=== PATIENT | male | born 1965 | race Caucasian/White ===

== ENCOUNTER 2016-08-05 08:39 | Inpatient (IN) | payer OTHER ==
[~2016-08-05] VITALS: Ht 188 cm; Wt 165.2 kg
[2016-08-05] VITALS (8 sets, daily range): BP systolic 112–143; BP diastolic 66–79; PULSE 73–88; TEMP 36.9–37.2; O2SAT 90–96; Ht 188 cm; Wt 165.2 kg
[~2016-08-05 08:39] MED LIST: ALBU0.08 INH; ALBU1AER9 INH; AMLO-114 PO; ASPI325T45 PO; ATRINS NEB; CINN1CAP2 PO; FRS/40 PO; GLC/500 PO; GLIP-199 PO; IBUP-1451 PO; LEVO150T PO; LOSA100T65 PO; METO-478 PO; MOME100A INH; OXYC-57 PO; PANT1TAB48 PO; SPIR50TA3 PO; TIOTCAP INH; TIZA4CAP PO
[2016-08-05] MEDS ORDERED: METHYLPREDNISOLONE 125 MG VIAL IV STA (08:52)
[2016-08-05] MEDS ORDERED: SODIUM CHLORIDE 0.9% 1000ML 1,000 ML IV STA (08:52)
[2016-08-05] MEDS ORDERED: ALBUT/IPRATROP 3MG/0.5MG NEB 3 ML VIAL INH STA ×2 (08:52→09:40)
--- NOTE | 2016-08-05 09:15 | EMERGENCY ROOM VISIT NOTE ---
History Report prepared by Melvinibromario: Paulina Venegas Under the Supervision of: Dr. Jazmine Guardado M.D. First contact with patient: 08:48 Chief Complaint: RESPIRATORY PROBLEMS Stated Complaint: DIFFICULTY BREATHING Nursing Triage Summary: Pt c/o difficulty breathing since Tuesday, hx pneumonia. States O2 was down to 55%. Wears bipap at night. Oxygen in triage 80- 85% on RA History of Present Illness The patient is a 51 year old male who presents to the Emergency Room with complaints of persistent SOB starting 2 days ago. He has a history of COPD and wears 4 L BiPAP at night. He has inhalers and a nebulizer at home. He has not used his nebulizer. He had a fever 2 days ago which resolved with Tylenol. He denies any cough, vomiting, or diarrhea. He denies any swelling in his legs. He wears compression socks without which he would have swelling. He has a history of COPD and currently smokes 1 ppd. He has a history of diabetes. He does not check his sugars regularly. Two weeks ago he had his blood sugar checked by his PCP who said that it was high. He admits to eating candies regularly. He reports that he accidentally has been taking steroids every day for the past 3 weeks. He started taking antibiotics yesterday. He has had pneumonia in the past. He has a history of CHF and is on Lasix. He denies any history of coronary problems or stents. He has received his flu shot this season. Source of History: patient Onset: 2 days ago Position: other (respiratory) Quality: other (SOB) Timing: other (persistent) Associated Symptoms: + fevers, No cough, No diarrhea, No vomiting Note: Pt denies swelling in the legs. Review of Systems See HPI for pertinent positives & negatives. A total of 10 systems reviewed and were otherwise negative. Past Medical & Surgical Medical Problems: (1) CHF (congestive heart failure) (2) COPD (chronic obstructive pulmonary disease) (3) DM type 2 (diabetes mellitus, type 2) (4) Dyslipidemia (5) GERD (gastroesophageal reflux disease) (6) H/O cor pulmonale (7) H/O pulmonary hypertension (8) Hypertension (9) Hypothyroidism (10) Morbid obesity (11) NAFLD (nonalcoholic fatty liver disease) (12) Obstructive sleep apnea (13) Severe obstructive sleep apnea Surgical Problems: (1) S/P appendectomy Family History Diabetes mellitus FATHER DAUGHTER (type I) FH: emphysema FATHER FH: heart disease FATHER ([place], during cardiac cath age 77) Hypertension FATHER Stroke FATHER Social History Smoking Status: Current Every Day Smoker Drug Use: none Marital Status: Housing Status: lives with family Occupation Status: employed Current/Historical Medications Scheduled Amlodipine (Norvasc), 10 MG PO QAM Aspirin (Aspirin), 1 TAB PO QAM Atorvastatin (Lipitor), 40 MG PO QPM Cinnamon (Cinnamon), 1 CAP PO BID Empagliflozin (Jardiance), 10 MG PO DAILY Furosemide (Lasix), 1 DOSE PO BID Glipizide (Glipizide Er), 1 TAB PO BID Levothyroxine Sodium (Synthroid), 150 MCG PO QAM Losartan Potassium (Cozaar), 100 MG PO QAM Metformin Hcl (Glucophage), 1,000 MG PO BID Metoprolol Succinate (Toprol Xl), 25 MG PO QAM Mometasone Furoate-Formoterol (Dulera 100/5 Mcg), 2 PUFFS INH BID Pantoprazole (Protonix), 40 MG PO QAM Spironolactone (Aldactone), 50 MG PO QAM Tiotropium [place] (Spiriva Handihaler), 1 CAP INH QAM Scheduled PRN Albuterol Hfa (Ventolin Hfa), 2 PUFFS INH Q4H PRN for SOB/Wheezing Ipratropium [place] (Ipratropium [place]), 1 VIAL NEB QID PRN for Shortness of Breath Oxycodone/Acetaminophen 5MG/325MG (Percocet 5MG/325MG), 1 TABLET PO Q6H PRN for Pain Tizanidine Hcl (Zanaflex), 1 CAP PO TID PRN for Pain Allergies Coded Allergies: Simvastatin (Verified Allergy, Unknown, RASH, 08/05/16) Physical Exam Vital Signs Date Time Temp Pulse Resp B/P Pulse Ox O2 Delivery O2 Flow Rate FiO2 08/05/16 11:00 74 15 120/82 89 Nasal Cannula 4.0 08/05/16 10:00 76 17 122/69 90 Nasal Cannula 4.0 08/05/16 09:01 74 08/05/16 09:01 73 16 141/80 88 Nasal Cannula 3.0 08/05/16 08:44 37.1 78 22 154/75 81 Room Air Physical Exam Vital signs reviewed. Noted to be hypoxic at 88% on 2 L. General: Well-appearing, obese, in no significant distress. HEENT: No scleral icterus, PERRLA, neck supple. Atraumatic. Cardiovascular: Regular rate and rhythm, no extra sounds. Pulmonary: Diffuse wheezing bilateral lung jaeger. Normal work of breathing. On nasal cannula oxygen. Abdomen: Soft, nontender, nondistended, positive bowel sounds. Musculoskeletal: Atraumatic. Trace pedal edema with compression stockings in place. Neurologic: Patient awake alert and oriented x 3, full strength in all 4 extremities. Cranial nerves 2 through 12 grossly intact. Skin: Warm, dry, no rash Medical Decision & Procedures ER Provider Diagnostic Interpretation: X-ray results as stated below per interpretation by me and the radiologist: SINGLE VIEW CHEST CLINICAL HISTORY: Fever. FINDINGS: An AP, portable, upright chest radiograph is compared to chest x-ray and chest CT dated 01/09/2015. The examination is degraded by portable technique and apical lordotic positioning. The heart is enlarged. There is congestion of the central pulmonary vasculature. Moderate emphysema and chronic interstitial thickening is similar to previous. Patchy airspace opacities are seen in the left mid to lower lung. No large pleural effusion or pneumothorax is seen. The bony thorax is grossly intact. IMPRESSION: 1. Cardiomegaly with mild congestion of the central pulmonary vasculature. 2. There are patchy airspace opacities in the left mid to lower lung. Correlate clinically for evidence of pneumonia. Electronically signed by: Sunil Gunn M.D. 08/05/2016 9:24 AM Dictated Date/Time: 08/05/2016 9:23 AM Laboratory Results Test 08/05/16 09:00 08/05/16 09:20 Immature Granulocyte % (Auto) 0.2 % White Blood Count 8.71 K/uL (4.8-10.8) Red Blood Count 4.59 M/uL (4.7-6.1) Hemoglobin 14.3 g/dL (14.0-18.0) Hematocrit 42.5 % (42-52) Mean Corpuscular Volume 92.6 fL (80-100) Mean Corpuscular Hemoglobin 31.2 pg (25-34) Mean Corpuscular Hemoglobin Concent 33.6 g/dl (32-36) Platelet Count 222 K/uL (130-400) Mean Platelet Volume 10.3 fL (7.4-10.4) Neutrophils (%) (Auto) 66.1 % Lymphocytes (%) (Auto) 20.0 % Monocytes (%) (Auto) 12.9 % Eosinophils (%) (Auto) 0.6 % Basophils (%) (Auto) 0.2 % Neutrophils # (Auto) 5.76 K/uL (1.4-6.5) Lymphocytes # (Auto) 1.74 K/uL (1.2-3.4) Monocytes # (Auto) 1.12 K/uL (0.11-0.59) Eosinophils # (Auto) 0.05 K/uL (0-0.5) Basophils # (Auto) 0.02 K/uL (0-0.2) Immature Granulocyte # (Auto) 0.02 K/uL (0.00-0.02) Prothrombin Time 10.7 SECONDS (9.0-12.0) Prothromb Time International Ratio 1.0 (0.9-1.1) Activated Partial Thromboplast Time 29.7 SECONDS (21.0-31.0) Partial Thromboplastin Ratio 1.1 Total Bilirubin 0.6 mg/dl (0.2-1) Direct Bilirubin 0.1 mg/dl (0-0.2) Aspartate Amino Transf (AST/SGOT) 14 U/L (15-37) Alanine Aminotransferase (ALT/SGPT) 34 U/L (12-78) Alkaline Phosphatase 110 U/L (45-117) Total Creatine Kinase 53 U/L (39-308) Creatine Kinase MB 0.7 ng/ml (0.5-3.6) Creatine Kinase MB Ratio 1.3 (0-3.0) Pro-B-Type Natriuretic Peptide 84 pg/ml (0-900) Total Protein 7.6 gm/dl (6.4-8.2) Albumin 3.7 gm/dl (3.4-5.0) Bedside Troponin I 0.000 ng/ml (0-0.045) Laboratory results per my review. Medications Administered Medications (Trade) Dose Ordered Sig/Tram Route Start Time Stop Time Status Last Admin Dose Admin Albuterol/ Ipratropium 3 ml 3 ml NOW STAT INH 08/05/16 08:52 08/05/16 08:55 DC 4/27/17 09:12 3 ML Sodium Chloride (Nss 1000ml) 1,000 ml @ 125 mls/hr Q8H STAT IV 08/05/16 08:52 08/05/16 12:37 DC 08/05/16 09:12 125 MLS/HR Methylprednisolone Sodium Succinate (Solu-Medrol IV) 125 mg NOW STAT IV 08/05/16 08:52 08/05/16 08:55 DC 08/05/16 09:12 125 MG Levofloxacin (Levaquin / D5W) 750 mg NOW STAT IV 08/05/16 09:40 08/05/16 09:41 DC 08/05/16 10:09 750 MG Albuterol/ Ipratropium (Duoneb) 3 ml NOW STAT INH 08/05/16 09:40 08/05/16 09:42 DC 08/05/16 10:09 3 ML ECG Indication: SOB/dyspnea Rate (beats per minute): 71 Rhythm: normal sinus Findings: no acute ischemic change, no ectopy, other (low voltage QRS) ED Course 0912: Past medical records reviewed. The patient was evaluated in room B4B. A complete history and physical examination was performed. 0852: Solu-Medrol IV 125 mg IV, NSS 1000 ml @ 125 mls/hr IV, Duoneb 3 ml INH. 0940: Duoneb 3 ml INH, Levofloxacin 750 mg IV. 0952: I discussed the patient's case with Dr. Jensen, [facility]. She will evaluate the patient for further management. 0958: Upon reevaluation, the patient is resting comfortably. I discussed laboratory and radiographic results with him. He verbalized agreement of the treatment plan. I spoke with Dr. Jensen of the [facility]. The patient will be evaluated for further management and care. Medical Decision Differential diagnoses: CHF, PE, COPD exacerbation, pneumonia, acute coronary syndrome This patient was evaluated and appeared to be in no significant distress. IV access was obtained and laboratory work was drawn. Patient was placed on the groundwater monitoring technician and given supplemental nasal cannula oxygen. The patient is found to be in a normal sinus rhythm. Chest x-ray was performed and is significant for pneumonia. Blood cultures were obtained and the patient was medicated with a DuoNeb treatment. The patient was hydrated with normal saline solution, given IV Levaquin and Solu-Medrol. Patient's symptoms have improved somewhat. He will be evaluated by the hospitalist service for admission and further management. Consults Time Called: [phone] Consulting Physician: Dr. Jensen [facility] Hospitalist Returned Call: [phone] I reviewed the patient's case with her. She will evaluate the patient for further management. Impression Primary Impression: COPD exacerbation Additional Impression: Pneumonia Scribe Attestation The scribe's documentation has been prepared under my direction and personally reviewed by me in its entirety. I confirm that the note above accurately reflects all work, treatment, procedures, and medical decision making performed by me. Departure Information Dispostion Being Evaluated By Hospitalist Referrals Nick Contreras, CharissaO. (PCP) Patient Instructions My [facility] Problem Qualifiers
--- NOTE | 2016-08-05 09:26 | DIAGNOSTIC IMAGING REPORT ---
SINGLE VIEW CHEST CLINICAL HISTORY: Fever. FINDINGS: An AP, portable, upright chest radiograph is compared to chest x-ray and chest CT dated 01/09/2015. The examination is degraded by portable technique and apical lordotic positioning. The heart is enlarged. There is congestion of the central pulmonary vasculature. Moderate emphysema and chronic interstitial thickening is similar to previous. Patchy airspace opacities are seen in the left mid to lower lung. No large pleural effusion or pneumothorax is seen. The bony thorax is grossly intact. IMPRESSION: 1. Cardiomegaly with mild congestion of the central pulmonary vasculature. 2. There are patchy airspace opacities in the left mid to lower lung. Correlate clinically for evidence of pneumonia. Electronically signed by: Sunil Gunn M.D. 08/05/2016 9:24 AM Dictated Date/Time: 08/05/2016 9:23 AM
[2016-08-05 09:33] LABS: BASO % 0.2 %; BASO ABS # 0.02 K/uL (0-0.2); COMPLETE YES; EOS % 0.6 %; HEMATOCRIT 42.5 % (42-52); IG% 0.2 %; LYMPH ABS # 1.74 K/uL (1.2-3.4); MEAN CELL VOLUME 92.6 fL (80-100); MEAN CORPUSCULAR HEMOGLOBIN 31.2 pg (25-34); MEAN CORPUSCULAR HGB CONC 33.6 g/dl (32-36); MEAN PLATELET VOLUME 10.3 fL (7.4-10.4); MONO % 12.9 %; NEUT % 66.1 %; PLATELET COUNT 222 K/uL (130-400); RED BLOOD COUNT 4.59 M/uL (4.7-6.1); WHITE BLOOD COUNT 8.71 K/uL (4.8-10.8)
[2016-08-05] MEDS ORDERED: LEVAQUIN 750MG / 150ML D5W IV STA (09:40)
[2016-08-05] MEDS ORDERED: ATOR-24 PO (09:45)
[2016-08-05] MEDS ORDERED: SPRIN/30 INH (09:45)
[2016-08-05] MEDS ORDERED: VNTHFA/IN INH (09:45)
[2016-08-05 09:49] LABS: BUN/CREATININE RATIO 11.6 (10-20); CALCIUM 8.8 mg/dl (8.5-10.1); CREATININE 0.78 mg/dl (0.60-1.40); MAGNESIUM 1.7 mg/dl (1.8-2.4); POTASSIUM 3.4 mmol/L (3.5-5.1)
[2016-08-05 09:56] LABS: CKMB/CK RATIO 1.3 (0-3.0)
[2016-08-05] MEDS ORDERED: ONDANSETRON INJ 2 MG/ML 2 ML VIAL IV PRN (10:45)
[2016-08-05] MEDS ORDERED: OXYCODONE/ACETAMINOPHEN 5-325 TAB PO PRN (10:45)
[2016-08-05] MEDS ORDERED: NITROGLYCERIN 0.4 MG SL PER TAB CHARGE SL PRN (10:45)
[2016-08-05] MEDS ORDERED: ACETAMINOPHEN 325 MG TAB PO PRN (10:45)
[2016-08-05] MEDS ORDERED: EMPA1TAB PO (10:51)
[2016-08-05] MEDS ORDERED: OXYC-57 PO (10:51)
--- NOTE | 2016-08-05 11:03 | Progress Note ---
Progress Note Date of Service Aug 05, 2016. Progress Note Patient was seen and evaluated with KHOI . Patient comes in with c/o worsening SOB, cough -productive, subjective fever x 2 days. No chest pain, abd pain, N/V/D, myalgias, headaches. Feeling better now after rx in ED. EXAM: Gen-AAOX3, morbidly obese Neck- Not using accessory muscles of respiration Heart-S1, S2 normal Lungs- Chest tightness, B/L decreased breath sounds, Wheezing +, No crackles Ext Labs reviewed- K 3.4, Mg 1.7 A/P: ACUTE HYPOXIC RESPIRATORY FAILURE: Multifactorial: Pneumonia/COPD exacerbation in setting of severe TRAVIS, Morbid obesity, Pulmonary hypertension, Cor pulmonale -On 3 L - 88%; Goal 88-92%; Uses BIPAP with 4 L overnight -ABGs ordered COPD EXACERBATION SECONDARY TO PNEUMONIA -Oxygen as above; BIPAP with 4 L q HS -Duonebs, Prednisone 40 mg and than taper, Levofloxacin -ABGs follow up PNEUMONIA, CAP -CXR- Left mid-lower lung infiltrate -Levofloxacin 750 mg IV daily -Sputum cx HYPOKALEMIA/HYPOMAGNESEMIA -Replace -Monitor SEVERE TRAVIS -BIPAP with 4 L q HS MORBID OBESITY DVT PROPHYLAXIS DISPOSITION Admit to telemetry
[2016-08-05] MEDS ORDERED: DEXTROSE 50% 50 ML SYR IV PRN (11:30)
[2016-08-05] MEDS ORDERED: GLUCOSE 10 TABS/TUBE PO PRN (11:30)
[2016-08-05] MEDS ORDERED: GLUCOSE 40% GEL 15 GM TUBE PO PRN (11:30)
[2016-08-05] MEDS ORDERED: GLUCAGON FOR INJ 1 MG VIAL SQ PRN (11:30)
[2016-08-05 11:33] LABS: ARTERIAL BLD GAS O2 SATURATION 89.6 % (90-95); ARTERIAL BLOOD GAS BASE EXCESS 6.8 mEq/L (-9-1.8); ARTERIAL BLOOD GAS HCO3 32 mmol/L (19-24); ARTERIAL BLOOD GAS PO2 58 mm/Hg (80-95); ARTERIAL BLOOD GAS pH 7.46 (7.35-7.45)
[2016-08-05 11:34] LABS: ALLEN TEST POS (POS); O2 ADMINISTRATION 3L
[2016-08-05] MEDS ORDERED: POTASSIUM CHLORIDE 10 MEQ TABCR PO STA ×2 (11:36→13:17)
--- NOTE | 2016-08-05 12:19 | History and Physical ---
History & Physical Date & Time of Service: Aug 05, 2016 at 11:00 Chief Complaint: Difficulty Breathing Primary Care Physician: Nick Contreras D.O. History of Present Illness Source: patient This is a 51 y/o male with PMHx of mod COPD, TRAVIS on BIPAP HS, DM 2, HTN, Dyslipidemia and other problems as outlined below who presents to the ED c/o worsening SOB for 2 days. Pt reports that 2 days he became more SOB. Sxs are assoc with subj fevers, wheezing and productive cough. Pt has been using his inhalers at home with minimal relief and he took one dose of Zpack rescue kit. He did not start steroids or use his nebulizer. Pt denies chest pain, palpitations, abd pain, N/V, bowel or bladder issues, LE edema, calf pain, lightheadedness/dizziness. In the ED, pt was hypoxic to 81% on room air when he arrived. Now saturating well on 3L O2. Pt is afebrile with no leukocytosis. K+ 3.4. Mag 1.7. CXR + opacities in L mid to lower lung. Pt is stable and will be admitted for further evaluation and treatment. Past Medical/Surgical History Medical Problems: (1) CHF (congestive heart failure) Status: Chronic (2) COPD (chronic obstructive pulmonary disease) Status: Chronic (3) DM type 2 (diabetes mellitus, type 2) Status: Chronic (4) Dyslipidemia Status: Chronic (5) GERD (gastroesophageal reflux disease) Status: Chronic (6) H/O cor pulmonale Status: Chronic (7) H/O pulmonary hypertension Status: Chronic (8) Hypertension Status: Chronic (9) Hypothyroidism Status: Chronic (10) Morbid obesity Status: Chronic (11) NAFLD (nonalcoholic fatty liver disease) Status: Chronic (12) Obstructive sleep apnea Status: Chronic (13) Severe obstructive sleep apnea Status: Chronic Surgical Problems: (1) S/P appendectomy Status: Chronic Family History Diabetes mellitus FATHER DAUGHTER (type I) FH: emphysema FATHER FH: heart disease FATHER ([place], during cardiac cath age 77) Hypertension FATHER Stroke FATHER Social History Smoking Status: Current Every Day Smoker (1 ppd x 34 years; cut down from 3-5 ppd) Alcohol Use: none Drug Use: none Marital Status: Housing status: lives with family Occupational Status: employed Immunizations History of Influenza Vaccine: No History of Pneumococcal: Yes Multi-Drug Resistant Organisms History of MDRO: No Allergies Coded Allergies: Simvastatin (Verified Allergy, Unknown, RASH, 08/05/16) Home Medications Scheduled Amlodipine (Norvasc), 10 MG PO QAM Aspirin (Aspirin), 1 TAB PO QAM Atorvastatin (Lipitor), 40 MG PO QPM Cinnamon (Cinnamon), 1 CAP PO BID Empagliflozin (Jardiance), 10 MG PO DAILY Furosemide (Lasix), 1 DOSE PO BID Glipizide (Glipizide Er), 1 TAB PO BID Levothyroxine Sodium (Synthroid), 150 MCG PO QAM Losartan Potassium (Cozaar), 100 MG PO QAM Metformin Hcl (Glucophage), 1,000 MG PO BID Metoprolol Succinate (Toprol Xl), 25 MG PO QAM Mometasone Furoate-Formoterol (Dulera 100/5 Mcg), 2 PUFFS INH BID Pantoprazole (Protonix), 40 MG PO QAM Spironolactone (Aldactone), 50 MG PO QAM Tiotropium [place] (Spiriva Handihaler), 1 CAP INH QAM Scheduled PRN Albuterol Hfa (Ventolin Hfa), 2 PUFFS INH Q4H PRN for SOB/Wheezing Ipratropium [place] (Ipratropium [place]), 1 VIAL NEB QID PRN for Shortness of Breath Oxycodone/Acetaminophen 5MG/325MG (Percocet 5MG/325MG), 1 TABLET PO Q6H PRN for Pain Tizanidine Hcl (Zanaflex), 1 CAP PO TID PRN for Pain Review of Systems Constitutional: + fever (subj), No chills, No fatigue, No sweats, No weakness Eyes: No worsening of vision ENT: No hearing loss Respiratory: + cough, + dyspnea at rest, + dyspnea on exertion, + shortness of breath, + sputum, + wheezing Cardiovascular: No chest pain, No claudication, No edema, No palpitations Abdomen: No constipation, No diarrhea, No nausea, No pain, No vomiting Musculoskeletal: No calf pain, No swelling Genitourinary - Male: No dysuria Neurologic: No weakness Psychiatric: No depression symptoms Endocrine: No fatigue Hematologic / Lymphatic: No abnormal bleeding/bruising Integumentary: No new/changing skin lesions Physical Exam Vital Signs Date Time Temp Pulse Resp B/P Pulse Ox O2 Delivery O2 Flow Rate FiO2 08/05/16 09:01 74 08/05/16 09:01 73 16 141/80 88 Nasal Cannula 3.0 08/05/16 08:44 37.1 78 22 154/75 81 Room Air General Appearance: WD/WN, no apparent distress, + obese, + pertinent finding ( Pt is sitting up in bed with at bedside) Head: normocephalic, atraumatic Eyes: normal inspection ENT: hearing grossly normal Neck: supple Respiratory/Chest: chest non-tender, no respiratory distress, + wheezing (mild expiratory wheezes), + pertinent finding (decreased air movement ) Cardiovascular: regular rate, rhythm, no edema, no murmur Abdomen/GI: normal bowel sounds, non tender, soft Back: normal inspection Extremities/Musculoskelatal: normal inspection, no calf tenderness, no pedal edema Neurologic/Psych: alert, normal mood/affect, oriented x 3 Skin: normal color, warm/dry Diagnostics Laboratory Results Results Past 24 Hours Test 08/05/16 08:58 08/05/16 09:00 08/05/16 09:20 08/05/16 10:45 Range/Units Bedside Glucose 166 70-99 mg/dl White Blood Count 8.71 4.8-10.8 K/uL Red Blood Count 4.59 4.7-6.1 M/uL Hemoglobin 14.3 14.0-18.0 g/dL Hematocrit 42.5 42-52 % Mean Corpuscular Volume 92.6 80-100 fL Mean Corpuscular Hemoglobin 31.2 25-34 pg Mean Corpuscular Hemoglobin Concent 33.6 32-36 g/dl Platelet Count 222 130-400 K/uL Mean Platelet Volume 10.3 7.4-10.4 fL Neutrophils (%) (Auto) 66.1 % Lymphocytes (%) (Auto) 20.0 % Monocytes (%) (Auto) 12.9 % Eosinophils (%) (Auto) 0.6 % Basophils (%) (Auto) 0.2 % Neutrophils # (Auto) 5.76 1.4-6.5 K/uL Lymphocytes # (Auto) 1.74 1.2-3.4 K/uL Monocytes # (Auto) 1.12 0.11-0.59 K/uL Eosinophils # (Auto) 0.05 0-0.5 K/uL Basophils # (Auto) 0.02 0-0.2 K/uL RDW Standard Deviation 46.1 36.4-46.3 fL RDW Coefficient of Variation 13.5 11.5-14.5 % Immature Granulocyte % (Auto) 0.2 % Immature Granulocyte # (Auto) 0.02 0.00-0.02 K/uL Sodium Level 140 136-145 mmol/L Potassium Level 3.4 3.5-5.1 mmol/L Chloride Level 104 98-107 mmol/L Carbon Dioxide Level 35 21-32 mmol/L Anion Gap 1.0 3-11 mmol/L Blood Urea Nitrogen 9 7-18 mg/dl Creatinine 0.78 0.60-1.40 mg/dl Est Creatinine Clear Calc Drug Dose 182.0 ml/min Estimated GFR () 120.3 Estimated GFR (Non- 103.8 BUN/Creatinine Ratio 11.6 10-20 Random Glucose 157 70-99 mg/dl Calcium Level 8.8 8.5-10.1 mg/dl Magnesium Level 1.7 1.8-2.4 mg/dl Total Bilirubin 0.6 0.2-1 mg/dl Direct Bilirubin 0.1 0-0.2 mg/dl Aspartate Amino Transf (AST/SGOT) 14 15-37 U/L Alanine Aminotransferase (ALT/SGPT) 34 12-78 U/L Alkaline Phosphatase 110 45-117 U/L Total Creatine Kinase 53 39-308 U/L Creatine Kinase MB 0.7 0.5-3.6 ng/ml Creatine Kinase MB Ratio 1.3 0-3.0 Pro-B-Type Natriuretic Peptide 84 0-900 pg/ml Total Protein 7.6 6.4-8.2 gm/dl Albumin 3.7 3.4-5.0 gm/dl Bedside Troponin I 0.000 0-0.045 ng/ml Microbiology Results 08/05/16 Blood Culture, Received Pending 08/05/16 Blood Culture, Received Pending Diagnostic Radiology CXR IMPRESSION: 1. Cardiomegaly with mild congestion of the central pulmonary vasculature. 2. There are patchy airspace opacities in the left mid to lower lung. Correlate clinically for evidence of pneumonia. EKG EKG: NSR at 71 bpm with no acute ischemic changes; no change when compared to EKG from 01/11/15 Impression Assessment and Plan ACUTE HYPOXIC RESPIRATORY FAILURE pt presented with worsening SOB assoc with subj fevers, wheezing and prod cough -admit to telemetry -multifactorial: CAP and COPD exacerbation in setting of severe TRAVIS on BIPAP HS , morbid obesity, cor pulmonale and pulmonary htn -81% on room air--> now saturating well on 3L -check ABG -cont O2 supplementation -monitor ACUTE COPD EXACERBATION/COMMUNITY ACQUIRED PNEUMONIA -pt is afebrile with no leukocytosis; O2 as documented above -CXR + opacity to L mid to lower lung -blood and sputum cx-pending -start prednisone, Levaquin and duonebs -counseled pt regarding importance of smoking cessation; will provide nicotine patch while in hospital -cont supplemental O2 -monitor HYPOKALEMIA/HYPOMAGNESEMIA -K+ 3.4, Mag 1.7 -replete -monitor daily SEVERE TRAVIS -BIPAP with 4 L O2 q HS -pt may use BIPAP from home DM 2 -recent A1C 7.2 -hold jardiance and metformin -start ISS -monitor DIASTOLIC CHF -echo 07/2015 EF 60-64% -cont Lasix and Spirolactone -pt does not appear fluid overloaded -monitor HYPOTHYROIDISM -cont levothyroxine HTN -BP stable -cont Norvasc and Losartan -monitor DYSLIPIDEMIA -cont statin DVT PROPHYLAXIS -subq Lovenox CODE STATUS -FULL CODE status DISPOSITION -Pt seen in collaboration with Dr. Jensen. Please see her addendum for further details. Thanks! -Of note: patient will be followed by Dr. Fishman starting tomorrow AM. VTE Prophylaxis VTE Risk Assessment Done? Y/N: Yes Risk Level: Moderate
[2016-08-05] MEDS ORDERED: IV FLUIDS COMPLETED PRN (13:30)
[2016-08-05 13:33] LABS: PARTIAL THROMBOPLASTIN RATIO 1.1; PROTHROMBIN TIME (PATIENT) 10.7 SECONDS (9.0-12.0)
[2016-08-05] MEDS: MAGNESIUM SULFATE 1GM / D5W 1 GM in PREMIXED IN D5W 100 ML IV SCH ×2 (13:46→14:45)
[2016-08-05] MEDS: INSULIN ASPART 100 UNITS/ML 3 ML PEN SC SCH ×3 (13:47→21:29)
[2016-08-05] MEDS: ALBUT/IPRATROP 3MG/0.5MG NEB 3 ML VIAL INH SCH ×3 (15:42→19:50)
[2016-08-05] MEDS ORDERED: CINNAMON PO SCH (21:00)
[2016-08-05] MEDS: ATORVASTATIN 40 MG TAB PO SCH (21:26)
[2016-08-05] MEDS: FUROSEMIDE 40 MG TAB PO SCH (21:26)
[2016-08-05] MEDS: ENOXAPARIN 40 MG/0.4 ML SYR SC SCH (21:27)
[2016-08-06] VITALS (10 sets, daily range): BP systolic 127–176; BP diastolic 62–80; PULSE 51–88; TEMP 36.5–37.2; O2SAT 91–98
[2016-08-06] MEDS: LEVOTHYROXINE 150 MCG TAB PO SCH (05:55)
[2016-08-06 06:29] LABS: HEMATOCRIT 41.5 % (42-52); MEAN CELL VOLUME 91.8 fL (80-100); MEAN CORPUSCULAR HEMOGLOBIN 30.8 pg (25-34); MEAN CORPUSCULAR HGB CONC 33.5 g/dl (32-36); MEAN PLATELET VOLUME 10.4 fL (7.4-10.4); PLATELET COUNT 251 K/uL (130-400); RED BLOOD COUNT 4.52 M/uL (4.7-6.1); WHITE BLOOD COUNT 14.54 K/uL (4.8-10.8)
[2016-08-06 07:03] LABS: BUN/CREATININE RATIO 19.7 (10-20); CALCIUM 8.8 mg/dl (8.5-10.1); CREATININE 0.74 mg/dl (0.60-1.40); MAGNESIUM 2.1 mg/dl (1.8-2.4); POTASSIUM 3.9 mmol/L (3.5-5.1)
[2016-08-06] MEDS: ALBUT/IPRATROP 3MG/0.5MG NEB 3 ML VIAL INH SCH (07:19)
[2016-08-06] MEDS: LEVOFLOXACIN / D5W 500 MG in PREMIXED IN D5W 100 ML IV SCH (07:27)
[2016-08-06] MEDS: SPIRONOLACTONE 25 MG TAB PO SCH (07:27)
[2016-08-06] MEDS: ASPIRIN 325 MG ECTAB PO SCH (07:27)
[2016-08-06] MEDS: LOSARTAN POTASSIUM 50 MG TAB PO SCH (07:28)
[2016-08-06] MEDS: PANTOprazole SOD 40 MG TAB PO SCH (07:29)
[2016-08-06] MEDS: NICOTINE 21 MG/24 HR TDSY TD SCH (07:29)
[2016-08-06] MEDS: METOPROLOL SUCC 25MG EXT REL TAB PO SCH (07:29)
[2016-08-06] MEDS: AMLODIPINE BESYLATE 5 MG TAB PO SCH (07:30)
[2016-08-06] MEDS: FUROSEMIDE 40 MG TAB PO SCH ×2 (07:30→20:59)
[2016-08-06] MEDS: INSULIN ASPART 100 UNITS/ML 3 ML PEN SC SCH ×4 (08:34→21:01)
[2016-08-06] MEDS ORDERED: PHARMACY GLYCEMIC MGMT CONSULT PRN (08:56)
--- NOTE | 2016-08-06 09:21 | Progress Note ---
Medicine Progress Note Date & Time of Visit: Aug 06, 2016 at 09:13. Subjective seen resting in bed, comfortable states breathing has improved compared to yesterday coughing less, non productive denies chest pain, fever/chills no other symptoms Objective Last 8 Hrs Date Time Temp Pulse Resp B/P Pulse Ox O2 Delivery O2 Flow Rate FiO2 08/06/16 07:21 88 18 93 Nasal Cannula 2.0 08/06/16 07:14 36.9 56 18 151/80 93 3.0 08/06/16 04:00 98 BiPAP 4.0 08/06/16 04:00 37.0 68 18 131/69 97 CPAP Physical Exam: General- oriented x 3, not in distress, speaks in sentences with no effort Head- atraumatic Eyes- EOMI, anicteric ENT- oropharynx clear Neck- supple, no JVD, no adenopathy, no thyromegaly; no bruits appreciated Lungs- mild scattered wheeze, expiratory bilaterally Heart- regular rhythm; no murmur, normal rate Abdomen- normal bowel sounds, soft, nontender Extremities- no pretibial edema, no calf tenderness; peripheral pulses intact Neuro- alert, oriented x 3; no gross focal deficits Skin- warm & dry Laboratory Results: Last 24 Hours Test 08/05/16 09:20 08/05/16 11:20 08/05/16 12:21 08/05/16 16:27 Bedside Troponin I 0.000 ng/ml Arterial Blood pH 7.46 Arterial Blood Partial Pressure CO2 45 mmHg Arterial Blood Partial Pressure O2 58 mm/Hg Arterial Blood HCO3 32 mmol/L Arterial Blood Oxygen Saturation 89.6 % Arterial Blood Base Excess 6.8 mEq/L Arterial Blood Gas Delivery 3L Colin Test POS Bedside Glucose 153 mg/dl 243 mg/dl Test 08/05/16 20:30 08/06/16 05:52 08/06/16 07:30 Bedside Glucose 251 mg/dl 167 mg/dl White Blood Count 14.54 K/uL Red Blood Count 4.52 M/uL Hemoglobin 13.9 g/dL Hematocrit 41.5 % Mean Corpuscular Volume 91.8 fL Mean Corpuscular Hemoglobin 30.8 pg Mean Corpuscular Hemoglobin Concent 33.5 g/dl RDW Standard Deviation 43.9 fL RDW Coefficient of Variation 13.1 % Platelet Count 251 K/uL Mean Platelet Volume 10.4 fL Sodium Level 139 mmol/L Potassium Level 3.9 mmol/L Chloride Level 102 mmol/L Carbon Dioxide Level 32 mmol/L Anion Gap 5.0 mmol/L Blood Urea Nitrogen 15 mg/dl Creatinine 0.74 mg/dl Est Creatinine Clear Calc Drug Dose 190.4 ml/min Estimated GFR () 122.9 Estimated GFR (Non- 106.1 BUN/Creatinine Ratio 19.7 Random Glucose 162 mg/dl Calcium Level 8.8 mg/dl Magnesium Level 2.1 mg/dl Date/Time Source Procedure Growth Status 08/05/16 09:25 Blood Blood Culture Pending Received 08/05/16 14:20 Sputum Expectorated Sputum Gram Stain - Final Complete 08/05/16 14:20 Sputum Expectorated Sputum Sputum Culture - Final Complete Assessment & Plan 51 year old male with history of COPD, Current Smoker, TRAVIS on Bipap at HS, CHF, DM, HTN presenting with fever and shortness of breath ACUTE HYPOXIC RESPIRATORY FAILURE SECONDARY TO COPD EXACERBATION, LEFT SIDED PNEUMONIA Multifactorial: Pneumonia/COPD exacerbation in setting of severe TRAVIS, Morbid obesity, Pulmonary hypertension, Cor pulmonale -On admission, 3 L - 88%; Uses BIPAP with 4 L overnight -- CXR: left lower lobe pneumonia -- now on 2 liters by NC continue Levaquin Day 2, Prednisone, Nebs q6h -- will consult Pulmonary PNEUMONIA, CAP -CXR- Left mid-lower lung infiltrate -Levofloxacin 750 mg IV daily -Sputum cx: pending HYPOKALEMIA/HYPOMAGNESEMIA -- resolved SEVERE TRAVIS -BIPAP with 4 L q HS MORBID OBESITY DVT PROPHYLAXIS Lovenox DISPOSITION anticipate d/c home when medically stable Current Inpatient Medications: Current Inpatient Medications Medications (Trade) Dose Ordered Sig/Tram Route Start Time Stop Time Status Last Admin Dose Admin Enoxaparin Sodium (Lovenox Inj) 40 mg Q24H SC 08/05/16 21:00 09/04/16 20:59 08/05/16 21:27 40 MG Acetaminophen (Tylenol Tab) 650 mg Q4H PRN PO 08/05/16 10:45 09/04/16 10:44 Ondansetron HCl (Zofran Inj) 4 mg Q6H PRN IV 08/05/16 10:45 09/04/16 10:44 Nitroglycerin (Nitrostat Tab) 0.4 mg UD PRN SL 08/05/16 10:45 09/04/16 10:44 Nicotine (Nicoderm Cq 21MG Patch) 1 patch QAM TD 08/06/16 09:00 09/05/16 08:59 08/06/16 07:29 1 PATCH Miscellaneous 1 ea 1 ea HS N/A 08/05/16 21:00 09/04/16 20:59 Levofloxacin/Prmx (Levaquin / D5W/ Premixed D5W) 100 ml @ 100 mls/hr DAILY@0800 IV 08/06/16 08:00 08/12/16 07:59 08/06/16 07:27 100 MLS/HR Prednisone (PredniSONE TAB) 40 mg DAILY PO 08/06/16 09:00 09/05/16 08:59 08/06/16 07:28 40 MG Amlodipine Besylate (Norvasc Tab) 10 mg QAM PO 08/06/16 09:00 09/05/16 08:59 08/06/16 07:30 10 MG Aspirin (Ecotrin Tab) 325 mg QAM PO 08/06/16 09:00 09/05/16 08:59 08/06/16 07:27 325 MG Atorvastatin Calcium (Lipitor Tab) 40 mg QPM PO 08/05/16 21:00 09/04/16 20:59 08/05/16 21:26 40 MG Furosemide (Lasix Tab) 80 mg QAM PO 08/06/16 09:00 09/05/16 08:59 08/06/16 07:30 80 MG Levothyroxine Sodium (Synthroid Tab) 150 mcg DAILYBB PO 08/06/16 06:30 09/05/16 06:29 08/06/16 05:55 150 MCG Losartan Potassium (coZAAR TAB) 100 mg QAM PO 08/06/16 09:00 09/05/16 08:59 08/06/16 07:28 100 MG Metoprolol Succinate (Toprol Xl Tab) 25 mg QAM PO 08/06/16 09:00 09/05/16 08:59 08/06/16 07:29 25 MG Oxycodone/ Acetaminophen (Percocet 5-325mg Tab) 1 tab Q6H PRN PO 08/05/16 10:45 08/19/16 10:44 Pantoprazole Sodium (Protonix Tab) 40 mg QAM PO 08/06/16 09:00 09/05/16 08:59 08/06/16 07:29 40 MG Tizanidine HCl (Zanaflex Tab) 4 mg TID PRN PO 08/05/16 10:45 09/04/16 10:44 Spironolactone (Aldactone Tab) 50 mg QAM PO 08/06/16 09:00 09/05/16 08:59 08/06/16 07:27 50 MG Albuterol/ Ipratropium (Duoneb) 3 ml QIDR INH 08/05/16 12:00 09/04/16 11:59 08/05/16 19:50 3 ML Insulin Aspart (novoLOG ASPART) SLIDING SCALE If C... ACHS SC 08/05/16 16:30 09/04/16 16:29 08/06/16 08:34 8 UNITS Glucose (Glucose 40% Gel) 15-30 GRAMS 15 GRAMS... UD PRN PO 08/05/16 11:30 09/04/16 11:29 Glucose (Glucose Chew Tab) 4-8 Tablets 4 Tabl... UD PRN PO 08/05/16 11:30 09/04/16 11:29 Dextrose (Dextrose 50% 50ML Syringe) 25-50ML OF 50% DW IV FOR... UD PRN IV 08/05/16 11:30 09/04/16 11:29 Glucagon (Glucagon Inj) 1 mg UD PRN SQ 08/05/16 11:30 09/04/16 11:29 Furosemide (Lasix Tab) 40 mg HS PO 08/05/16 21:00 09/04/16 20:59 08/05/16 21:26 40 MG Miscellaneous (Iv Fluids Completed) 1 ea PRN PRN N/A 08/05/16 13:30 08/05/17 13:29 Albuterol/ Ipratropium (Combivent Respimat Inh) 1 puffs QID INH 08/06/16 13:00 09/05/16 12:59 Miscellaneous Information (Consult Glycemic Management Pharmacy) 1 ea UD PRN N/A 08/06/16 08:56 09/05/16 08:55
[2016-08-06] MEDS: IPRATROPIUM BROMIDE/ALBUTEROL respimat INH INH SCH ×3 (12:42→20:58)
--- NOTE | 2016-08-06 14:31 | Pharmacy Progress Note ---
Glycemic Control Intl Consult Date of Service Aug 06, 2016. Scope Glycemic Pharmacist consulted by Dr Fishman on 08/06/16 for glycemic control and to write orders per [facility] inpatient glycemic control protocol Objective Weight (Kilograms): 164.900 Accuchecks BSG (last 24hrs): Test 08/05/16 16:27 08/05/16 20:30 08/06/16 05:52 08/06/16 07:30 Bedside Glucose 243 mg/dl (70-99) 251 mg/dl (70-99) 167 mg/dl (70-99) Random Glucose 162 mg/dl (70-99) Test 08/06/16 11:44 Bedside Glucose 167 mg/dl (70-99) Laboratory Data (last 24hrs) Test 08/06/16 05:52 Anion Gap 5.0 mmol/L BUN/Creatinine Ratio 19.7 Blood Urea Nitrogen 15 mg/dl Creatinine 0.74 mg/dl Potassium Level 3.9 mmol/L Sodium Level 139 mmol/L White Blood Count 14.54 K/uL Recent Pertinent Medications Outpatient Anti-diabetic Regimen: * Jardiance 10mg PO daily * Glipizide ER 10mg PO BID * Metformin 1000mg PO BID The patient is currently receiving: * Basal insulin: * none at time of consult * Bolus Insulin: * NovoLog SQ AC/HS * Goal Range: Low 140 mg/dL - High 180 mg/dL * Correction Factor: 25 mg/dL/unit * Carb ratio of 1 unit per 9 grams CHO consumed * Oral Agents: * none at time of consult Risk Factors for Insulin Resistance: * Steroids: Solu-Medrol 125mg IV x1 dose on 08/05 in AM, then Prednisone 40mg PO daily * Infection: CAP/COPD exacerbation with levofloxacin IV - day #2 of therapy * Diet: T2DM/Low Na - tolerating well per CHO counts Assessment & Plan ASSESSMENT: Initial: * ADA & AACE recommend a goal blood sugar range 140-180 mg/dl for the majority of critically ill & non-critically ill patients. * 51 y/o with adequate glycemic control with oral medications per evidence of A1c of 7.2% per provider note * Pt is maintained on oral antidiabetic agents as an outpatient * Oral agents are not recommended for inpatient use d/t drug interactions, changing PO intake, and difficulty titrating for acute hyper/hypoglycemia. ADA recommends re-initiating outpatient oral agents 1-2 days prior to discharge if/ when appropriate if they were held on admission. * BSGs elevated over the past 24 hours secondary to steroid administration * IV x1, now daily prednisone dose 08/06/16 * BSGs rising throughout the day yesterday despite NovoLog * tighten parameters * Fasting BSG elevated x2 days * consider the addition of NPH insulin with daily prednisone if Fasting BSG elevated tomorrow and/or BSGs rise throughout the day today despite updated NovoLog order PLAN FOR INPATIENT GLYCEMIC CONTROL: * Basal insulin: * none at this time * may consider NPH with prednisone dosing if needed. * Bolus insulin: * NovoLog SQ AC and HS * Correction factor: 20mg/dL/unit * Carb ratio: 1 unit per 7g of CHO consumed * Goal: 140-180mg/dL per ADA recommendations * Oral medications: * may consider reinstituting Jardiance (non-formulary) and metformin tomorrow * hold sulfonylurea until discharge * A1c - order with AM labs RECOMMENDATIONS FOR DISCHARGE: * awaited * Please note that the plan above was derived based on current level of insulin resistance and hospital stress. These recommendations are appropriate for inpatient admission only. Plan of care upon discharge will need to be reassessed to avoid potential outpatient hypo/hyperglycemia. Thank you.
--- NOTE | 2016-08-06 17:59 | CONSULTATION REPORT ---
DATE OF CONSULTATION: 08/06/2016 REASON FOR CONSULTATION: Acute exacerbation of COPD. HISTORY OF PRESENT ILLNESS: The patient is a 51-year-old male who does have a history of COPD as well as obstructive sleep apnea for which he is on BiPAP and questionable history of pulmonary hypertension who started 2 days ago with increased shortness of breath. He reports that he also had fever and wheezing with this. He also had a cough which he felt was productive, but he was never able to expectorate any mucus. He is not sure if there is any color or blood in the mucus. Because of these symptoms, he did start a Z-EMMY, which he had at home for rescue kit. He took that for 1 day and the symptoms continued to worsen, so he came into the Emergency Department. He also used his inhalers. He did not use any steroids from his emergency kit and he did not use his nebulizer. He did not really have any other symptoms associated with the breathing difficulties. He had no chest pain. He had no palpitations. He had no headache or lightheadedness. No dizziness. He had no GI symptoms. He denied any nausea or vomiting. He had no indigestion or heartburn. He had no difficulty swallowing. He had no difficulty with his bowels. He had no difficulty voiding. He had no swelling in his extremities. In the Emergency Room, he was found to be hypoxic with an O2 saturation of 81%. He was placed on oxygen and was saturating well on 3 liters. He also was found to have opacities in the left mid lung and left lower lobe on chest x-ray and was felt to have a pneumonia. He was started on the antibiotic, pulmonary toilet and steroid. When I saw the patient today, he is feeling better. He states that his breathing has significantly improved. He states that he feels he can probably be off oxygen which he only uses at nighttime at home. He does not feel the shortness of breath or chest tightness any more. He still has a little bit of cough, but that has improved as well. Overall, he is feeling much better. He has had pneumonia in the past. He was last hospitalized at [facility] for pneumonia in January of 2015. He denies any other concerns or problems at this time. Unfortunately, he does continue to smoke, currently smoking about a pack a day which he has been smoking about a pack a day since 2005. He has been smoking for about 35 years. Prior to 2005, he was smoking anywhere from 3-5 packs a day. He apparently had an episode of CHF and cardiac event 2005 and this is when he cut back on his smoking. Last echo I can find in the chart was done in July 2015 showing that his ejection fraction was in the 60%-64% range. The right ventricle appeared to be borderline dilated, right ventricular systolic function was considered to be normal. There was no significant valvular disease. The patient denies any other concerns or problems at this time. He does follow with Katy Pandey, certified registered nurse practitioner with [facility] for his pulmonary care. His PCP is Dr. Nick Contreras. PAST MEDICAL HISTORY: Includes moderate COPD, obstructive sleep apnea which the patient is on BiPAP, diabetes mellitus, hypertension, dyslipidemia, congestive heart failure, gastroesophageal reflux disease, cor pulmonale, pulmonary hypertension, hypertension, hypothyroidism, obesity, nonalcoholic fatty liver disease. PAST SURGICAL HISTORY: Includes appendectomy. FAMILY HISTORY: Includes diabetes mellitus, emphysema, coronary artery disease, hypertension and CVA. SOCIAL HISTORY: The patient has a significant smoking history. He smoked for about 35 years with the last 10 years being a pack a day, prior to that he smoked 3-5 packs a day. No alcohol, no drug use. He currently works at [employer]. PULMONARY MEDICATIONS: At home include Spiriva, Dulera, Ventolin, and ipratropium and a nebulizer. He states that he did have pulmonary function testing done about a week or so ago at [facility], we do not have any record of this. ALLERGIES: SIMVASTATIN. CURRENT HOME MEDICATIONS: As per history and physical by the hospitalist team. REVIEW OF SYSTEMS: As above, otherwise unremarkable. PHYSICAL EXAMINATION: GENERAL: The patient is a 51-year-old male in no acute distress. He is alert and oriented x3. Mood is good. Affect is good. VITAL SIGNS: Temp 36.8, pulse 81, respirations 20, blood pressure is 135/73, pulse ox 93% on 2 liters. HEENT: Normocephalic, atraumatic. Pupils equal, round and reactive to light and accommodation. Extraocular movements are intact. Wagoner moist gingival and buccal mucosa. NECK: Supple. No mass. No adenopathy. No bruit. CHEST: Diminished, a few coarse wheezes throughout. No rale or rhonchi noted. CARDIOVASCULAR: Regular rate and rhythm. No murmurs, gallops or rubs. ABDOMEN: Soft, nontender. No guarding, rigidity or organomegaly. EXTREMITIES: Trace edema bilaterally, no erythema, no cyanosis or clubbing. LABORATORY DATA: Shows a white count of 14,000, H\T\H 13.9 and 41.5, platelet count of 251,000. ABG shows a pH of 7.4, pCO2 of 45, pO2 of 58, bicarbonate 32. This was done on August 05. Renal function was unremarkable. Sputum Gram stain is showing contamination. Chest x-ray showing some cardiomegaly with mild congestion as well as patchy airspace opacities in the left mid to lower lung. IMPRESSION: 1. This is a 51-year-old male with reported moderate COPD who also presents with a febrile illness and chest x-ray consistent with a left-sided pneumonia. At this point, the patient is feeling improvement compared to yesterday when he arrived at the Emergency Room. His oxygen saturation is better as well. For now, I would recommend to continue Levaquin, so that he completes a 10-day course. I would also recommend to continue steroids and can taper and transition to oral prednisone and then do a slow taper over 8 days. He is to continue his aggressive pulmonary toilet as well as home inhalers. Did discuss with him getting a pneumonia shot. He states he did have one about a year and a half ago, but he is not sure if it was pneumococcal or Prevnar, he is going to check with his PCP on this. 2. Hypoxia, this is improving. His oxygen requirements are less. 3. Pulmonary hypertension, cannot find any record of significant elevation of pulmonary artery pressure. The patient does not remember getting a right heart catheterization, unsure where the diagnosis was made. For now, he is to continue his medications as they are in regards to this. We will continue to follow the patient through hospitalization. Patient's-[id number] MTDD
[2016-08-06] MEDS: ATORVASTATIN 40 MG TAB PO SCH (20:59)
[2016-08-06] MEDS: ENOXAPARIN 40 MG/0.4 ML SYR SC SCH (20:59)
[2016-08-07 04:07] VITALS: BP 142/89; PULSE 53; TEMP 36.5; O2SAT 93
[2016-08-07] MEDS: LEVOTHYROXINE 150 MCG TAB PO SCH (06:21)
[2016-08-07 07:32] VITALS: BP 126/75; PULSE 54; TEMP 36.6; O2SAT 95
[2016-08-07] MEDS: LEVOFLOXACIN / D5W 500 MG in PREMIXED IN D5W 100 ML IV SCH ×2 (07:56→08:26)
[2016-08-07 08:00] VITALS: O2SAT 95
[2016-08-07] MEDS: IPRATROPIUM BROMIDE/ALBUTEROL respimat INH INH SCH ×3 (08:28→17:14)
[2016-08-07] MEDS: METOPROLOL SUCC 25MG EXT REL TAB PO SCH (08:28)
[2016-08-07] MEDS: LOSARTAN POTASSIUM 50 MG TAB PO SCH (08:29)
[2016-08-07] MEDS: ASPIRIN 325 MG ECTAB PO SCH (08:29)
[2016-08-07] MEDS: AMLODIPINE BESYLATE 5 MG TAB PO SCH (08:29)
[2016-08-07 08:30] VITALS: BP 126/83; PULSE 60
[2016-08-07] MEDS: NICOTINE 21 MG/24 HR TDSY TD SCH (08:30)
[2016-08-07] MEDS: SPIRONOLACTONE 25 MG TAB PO SCH (08:30)
[2016-08-07] MEDS: PANTOprazole SOD 40 MG TAB PO SCH (08:30)
[2016-08-07] MEDS: FUROSEMIDE 40 MG TAB PO SCH (08:31)
[2016-08-07] MEDS: INSULIN ASPART 100 UNITS/ML 3 ML PEN SC SCH ×2 (08:37→12:58)
[2016-08-07 08:39] LABS: ESTIMATED AVERAGE GLUCOSE 163 mg/dl; HA1C FLAG Normal (Normal)
[2016-08-07] MEDS ORDERED: INSULIN HUMAN NPH SC SCH (09:30)
[2016-08-07 11:39] VITALS: BP 126/77; PULSE 54; TEMP 37; O2SAT 93
--- NOTE | 2016-08-07 13:51 | Pharmacy Progress Note ---
Glycemic: Assessment & Plan Date of Service Aug 07, 2016. Assessment & Plan Assessment * BSG's ranging 140-238 mg/dL over 24 hours * BSG's gradually trending up over the course of the day yesterday * Will start insulin NPH to be administered with prednisone (as their pharmacokinetics are similar and do not anticipate need for basal after steroids dc'd) * Will maintain Novolog as ordered Plan * Basal insulin: Insulin NPH 10 units qAM (to be administered with prednisone) 1/2 dose for BSG 100-119 mg/dL Hold for BSG < 100 mg/dL or if prednisone not administered * Correctional Insulin: Novolog Correction per scale ACHS Goal Range: Low 140 mg/dL - High 180 mg/dL Correction Factor: 20 mg/dL/unit * Prandial insulin: Per carb ratio of 1 unit per 7 grams CHO consumed Pharmacy will continue to monitor patient daily and write orders per [facility] inpatient glycemic control protocol. Thanks. * Please note that the plan above was derived based on current level of insulin resistance and hospital stress. These recommendations are appropriate for inpatient admission only. Plan of care upon discharge will need to be reassessed to avoid potential outpatient hypo/hyperglycemia.
[2016-08-07 15:14] VITALS: BP 129/77; PULSE 67; TEMP 37.2; O2SAT 91
--- NOTE | 2016-08-07 15:45 | Progress Note ---
Medicine Progress Note Date & Time of Visit: Aug 07, 2016 at 15:39. Subjective patient seen sitting up in bed, comfortable states he feels better overall denies shortness of breath less cough no sputum denies chest pain, palpitations, dizziness no other symptoms states he is ready for discharge today Objective Last 8 Hrs Date Time Temp Pulse Resp B/P Pulse Ox O2 Delivery O2 Flow Rate FiO2 08/07/16 15:14 37.2 67 20 129/77 91 Nasal Cannula 3.0 08/07/16 12:00 Nasal Cannula 3.0 08/07/16 11:39 37.0 54 18 126/77 93 Nasal Cannula 3.0 08/07/16 08:30 60 126/83 08/07/16 08:00 95 Nasal Cannula 3.0 Physical Exam: General- oriented x 3, not in distress, speaks in sentences with no effort Head- atraumatic Eyes- anicteric Neck- no JVD Lungs- very mild scattered wheeze, expiratory bilaterally, no rales/wheeze Heart- regular rhythm; no murmur, normal rate Abdomen- normal bowel sounds, soft, nontender Extremities- no pretibial edema, no calf tenderness; peripheral pulses intact Neuro- alert, oriented x 3; no gross focal deficits Skin- warm & dry Laboratory Results: Last 24 Hours Test 08/06/16 17:07 08/06/16 20:33 08/07/16 07:35 08/07/16 07:55 Bedside Glucose 175 mg/dl 238 mg/dl 169 mg/dl Estimated Average Glucose 163 mg/dl Hemoglobin A1c 7.3 % Assessment & Plan 51 year old male with history of COPD, Current Smoker, TRAVIS on Bipap at , CHF, DM, HTN presenting with fever and shortness of breath ACUTE HYPOXIC RESPIRATORY FAILURE SECONDARY TO COPD EXACERBATION, LEFT SIDED PNEUMONIA Multifactorial: Pneumonia/COPD exacerbation in setting of severe TRVAIS, Morbid obesity, Pulmonary hypertension, Cor pulmonale -On admission, 3 L - 88%; Uses BIPAP with 4 L overnight -- CXR: left lower lobe pneumonia -- now on 2 liters by NC - received Levaquin 500mg, Prednisone 40mg daily, Nebs q6h x 3 days - improved overall - discharge plan: Levaquin 500mg po daily x 4 more days Prednisone taper Nebs q6h until seen by PCP - ff up with PCP in 1 week PNEUMONIA, CAP -CXR- Left mid-lower lung infiltrate -Levofloxacin 750 mg given x 3 days, continue for 4 more days HYPOKALEMIA/HYPOMAGNESEMIA -- resolved SEVERE TRAVIS -BIPAP with 4 L q HS MORBID OBESITY DVT PROPHYLAXIS Lovenox DISPOSITION d.c home today ff up with PCP in 3-5 days Current Inpatient Medications: Current Inpatient Medications Medications (Trade) Dose Ordered Sig/Tram Route Start Time Stop Time Status Last Admin Dose Admin Enoxaparin Sodium (Lovenox Inj) 40 mg Q24H SC 08/05/16 21:00 09/04/16 20:59 08/06/16 20:59 40 MG Acetaminophen (Tylenol Tab) 650 mg Q4H PRN PO 08/05/16 10:45 09/04/16 10:44 Ondansetron HCl (Zofran Inj) 4 mg Q6H PRN IV 08/05/16 10:45 09/04/16 10:44 Nitroglycerin (Nitrostat Tab) 0.4 mg UD PRN SL 08/05/16 10:45 09/04/16 10:44 Nicotine (Nicoderm Cq 21MG Patch) 1 patch QAM TD 08/06/16 09:00 09/05/16 08:59 08/07/16 08:30 1 PATCH Miscellaneous 1 ea 1 ea HS N/A 08/05/16 21:00 09/04/16 20:59 08/06/16 21:02 1 EA Levofloxacin/Prmx (Levaquin / D5W/ Premixed D5W) 100 ml @ 100 mls/hr DAILY@0800 IV 08/06/16 08:00 08/12/16 07:59 08/07/16 08:26 100 MLS/HR Prednisone (PredniSONE TAB) 40 mg DAILY PO 08/06/16 09:00 09/05/16 08:59 08/07/16 08:29 40 MG Amlodipine Besylate (Norvasc Tab) 10 mg QAM PO 08/06/16 09:00 09/05/16 08:59 08/07/16 08:29 10 MG Aspirin (Ecotrin Tab) 325 mg QAM PO 08/06/16 09:00 09/05/16 08:59 08/07/16 08:29 325 MG Atorvastatin Calcium (Lipitor Tab) 40 mg QPM PO 08/05/16 21:00 09/04/16 20:59 08/06/16 20:59 40 MG Furosemide (Lasix Tab) 80 mg QAM PO 08/06/16 09:00 09/05/16 08:59 08/07/16 08:31 80 MG Levothyroxine Sodium (Synthroid Tab) 150 mcg DAILYBB PO 08/06/16 06:30 09/05/16 06:29 08/07/16 06:21 150 MCG Losartan Potassium (coZAAR TAB) 100 mg QAM PO 08/06/16 09:00 09/05/16 08:59 08/07/16 08:29 100 MG Metoprolol Succinate (Toprol Xl Tab) 25 mg QAM PO 08/06/16 09:00 09/05/16 08:59 08/07/16 08:28 25 MG Oxycodone/ Acetaminophen (Percocet 5-325mg Tab) 1 tab Q6H PRN PO 08/05/16 10:45 08/19/16 10:44 Pantoprazole Sodium (Protonix Tab) 40 mg QAM PO 08/06/16 09:00 09/05/16 08:59 08/07/16 08:30 40 MG Tizanidine HCl (Zanaflex Tab) 4 mg TID PRN PO 08/05/16 10:45 09/04/16 10:44 Spironolactone (Aldactone Tab) 50 mg QAM PO 08/06/16 09:00 09/05/16 08:59 08/07/16 08:30 50 MG Albuterol/ Ipratropium (Duoneb) 3 ml QIDR INH 08/05/16 12:00 09/04/16 11:59 08/05/16 19:50 3 ML Insulin Aspart (novoLOG ASPART) SLIDING SCALE If C... ACHS SC 08/05/16 16:30 09/04/16 16:29 08/07/16 12:58 9 UNITS Glucose (Glucose 40% Gel) 15-30 GRAMS 15 GRAMS... UD PRN PO 08/05/16 11:30 09/04/16 11:29 Glucose (Glucose Chew Tab) 4-8 Tablets 4 Tabl... UD PRN PO 08/05/16 11:30 09/04/16 11:29 Dextrose (Dextrose 50% 50ML Syringe) 25-50ML OF 50% DW IV FOR... UD PRN IV 08/05/16 11:30 09/04/16 11:29 Glucagon (Glucagon Inj) 1 mg UD PRN SQ 08/05/16 11:30 09/04/16 11:29 Furosemide (Lasix Tab) 40 mg HS PO 08/05/16 21:00 09/04/16 20:59 08/06/16 20:59 40 MG Miscellaneous (Iv Fluids Completed) 1 ea PRN PRN N/A 08/05/16 13:30 08/05/17 13:29 Albuterol/ Ipratropium (Combivent Respimat Inh) 1 puffs QID INH 08/06/16 13:00 09/05/16 12:59 08/07/16 08:28 1 PUFFS Miscellaneous Information (Consult Glycemic Management Pharmacy) 1 ea UD PRN N/A 08/06/16 08:56 09/05/16 08:55 Insulin Human NPH (novoLIN-N NPH) QAM SC 08/07/16 09:30 09/06/16 09:29 08/07/16 12:59 10 UNITS Tiotropium [place] (Spiriva Handihaler Inhaler) 1 puff QAM INH 08/08/16 09:00 09/07/16 08:59 Miscellaneous Information (Order Awaiting Action) 1 ea QS N/A 08/07/16 16:00 09/06/16 15:59
[2016-08-07] MEDS ORDERED: IPRA1AER2 INH (15:52)
[2016-08-07] MEDS ORDERED: PRED10TA PO (15:52)
[2016-08-07] MEDS ORDERED: ATRINS NEB (15:52)
[2016-08-07] MEDS ORDERED: LEVO1TAB34 PO (15:52)
--- NOTE | 2016-08-07 16:01 | Discharge Instructions ---
Discharge Instructions Date of Service Aug 07, 2016. Admission Reason for Admission: Copd Exacerbation,Pneumonia Discharge Discharge Diagnosis / Problem: PNEUMONIA, COPD EXACERBATION Discharge Goals Goal(s): Diagnostic testing, Therapeutic intervention Activity Recommendations Activity Limitations: as noted below (NO HEAVY EXERTION UNTIL RE-EVALUATED BY PRIMARY CARE PHYSICIAN) . Instructions / Follow-Up Instructions / Follow-Up PLEASE REVIEW YOUR NEW MEDICATION LIST AND FOLLOW INSTRUCTIONS CAREFULLY. HOLD SPIRIVA WHILE TAKING COMBIVENT. CALL PRIMARY CARE PHYSICIAN OR RETURN TO ER IMMEDIATELY IF WITH RECURRENCE OF SYMPTOMS, INCREASING COUGH, SHORTNESS OF BREATH, FEVER/CHILLS. FOLLOW UP WITH DR. NG ON WEDNESDAY, AUGUST 10, 2016 AT 2:45 PM. FOLLOW UP WITH [facility] SCHEDULED. Current Hospital Diet Patient's current hospital diet: Low Sodium Diet (2gm Na), Diabetes Type 2 Diet Discharge Diet Recommended Diet: AHA Diet (Heart Healthy), Diabetes Type 2 Diet Pending Studies Studies pending at discharge: no Laboratory Results Hemoglobin A1c Test 08/07/16 07:35 Range/Units Estimated Average Glucose 163 mg/dl Hemoglobin A1c 7.3 H 4.5-5.6 % Medical Emergencies . Who to Call and When: Medical Emergencies: If at any time you feel your situation is an emergency, please call 911 immediately. . Non-Emergent Contact Non-Emergency issues call your: Primary Care Provider Call Non-Emergent contact if: you have a fever, you have any medication questions . Past History Medical & Surgical History: (1) COPD (chronic obstructive pulmonary disease) (2) Hypoxia (3) Pneumonia (4) COPD exacerbation (5) Hypertension (6) Obstructive sleep apnea (7) GERD (gastroesophageal reflux disease) (8) Hypothyroidism (9) DM type 2 (diabetes mellitus, type 2) (10) Morbid obesity (11) H/O cor pulmonale (12) NAFLD (nonalcoholic fatty liver disease) (13) Dyslipidemia (14) Severe obstructive sleep apnea (15) H/O pulmonary hypertension (16) CHF (congestive heart failure) (17) S/P appendectomy . "Provider Documentation" section prepared by Rosendo Fishman. . VTE Core Measure Inpt VTE Proph given/why not?: Enoxaparin (Lovenox)SQ
--- NOTE | 2016-08-07 16:07 | Discharge Summary ---
Discharge Summary Date of Service Aug 07, 2016. Discharge Summary Admission Date: Aug 05, 2016 at 11:17 Discharge Date: Aug 07, 2016 Discharge Disposition: Home Principal Diagnosis: ACUTE HYPOXIC RESPIRATORY FAILURE SECONDARY TO COPD EXACERBATION, LEFT SIDED PNEUMONIA Secondary Diagnoses/Problems: PLEASE REFER TO HOSPITAL COURSE BELOW. Procedures: SINGLE VIEW CHEST CLINICAL HISTORY: Fever. FINDINGS: An AP, portable, upright chest radiograph is compared to chest x-ray and chest CT dated 01/09/2015. The examination is degraded by portable technique and apical lordotic positioning. The heart is enlarged. There is congestion of the central pulmonary vasculature. Moderate emphysema and chronic interstitial thickening is similar to previous. Patchy airspace opacities are seen in the left mid to lower lung. No large pleural effusion or pneumothorax is seen. The bony thorax is grossly intact. IMPRESSION: 1. Cardiomegaly with mild congestion of the central pulmonary vasculature. 2. There are patchy airspace opacities in the left mid to lower lung. Correlate clinically for evidence of pneumonia. Electronically signed by: Sunil Gunn M.D. 08/05/2016 9:24 AM Consultations: Pulmonary Service- Dr. Mays/CINTHIA Gagnon Pending Studies/Follow-Up: Please refer to hospital course below. Medication Reconciliation New Medications: Levofloxacin (Levaquin) 500 Mg Tab 500 MG PO DAILY for 4 Days, #4 TAB Prednisone Tab (Prednisone) 10 Mg Tab 10 MG PO UD, #15 TAB take 4 tabs po daily x 2 days, then take 2 tabs po daily x 2 days, then take 1 tab po daily x 2 days, then take 1/2 tab po daily x 2 days, then stop Ipratropium-Albuterol (Combivent Respimat) 1 Aer Aer 1 PUFFS INH QID for 7 Days, #1 INHA 1 Refill Changed Medications: Ipratropium [place] (Ipratropium [place]) 0.5 Mg/2.5 Ml Nebu 1 VIAL NEB Q4H PRN for Shortness of Breath for 30 Days, #300 ML 5 Refills ( Changed from: QID) Continued Medications: Albuterol Hfa (Ventolin Hfa) 200 Puffs/54935 Mcg Aers 2 PUFFS INH Q4H PRN for SOB/Wheezing, #1 INHALER Amlodipine (Norvasc) 10 Mg Tab 10 MG PO QAM, TAB Aspirin (Aspirin) 325 Mg Tab 1 TAB PO QAM Atorvastatin (Lipitor) 40 Mg Tab 40 MG PO QPM, TAB Cinnamon (Cinnamon) 500 Mg Cap 1 CAP PO BID Empagliflozin (Jardiance) 10 Mg Tab 10 MG PO DAILY Furosemide (Lasix) 40 Mg Tab 1 DOSE PO BID, TAB 2 TABS IN AM 1 TAB IM PM Glipizide (Glipizide Er) 10 Mg Tab 1 TAB PO BID, TAB 3 Refills Levothyroxine Sodium (Synthroid) 150 Mcg Tab 150 MCG PO QAM, TAB Losartan Potassium (Cozaar) 100 Mg Tab 100 MG PO QAM, TAB Metformin Hcl (Glucophage) 500 Mg Tab 1000 MG PO BID, TAB Metoprolol Succinate (Toprol Xl) 25 Mg Tab 25 MG PO QAM, #30 TAB Mometasone Furoate-Formoterol (Dulera 100/5 Mcg) 1 Aer Aer 2 PUFFS INH BID for 30 Days, #13 GM 2 Refills Oxycodone/Acetaminophen 5MG/325MG (Percocet 5MG/325MG) Tab 1 TABLET PO Q6H PRN for Pain, TAB Pantoprazole (Protonix) 40 Mg Tab 40 MG PO QAM, #30 TAB Spironolactone (Aldactone) 50 Mg Tab 50 MG PO QAM, TAB Tizanidine Hcl (Zanaflex) 4 Mg Cap 1 CAP PO TID PRN for Pain for 30 Days, #90 CAP Discontinued Medications: Tiotropium [place] (Spiriva Handihaler) 30 Puff/540 Mcg Aerp 1 CAP INH QAM, INHALER Admission Information HPI (per Admitting provider): This is a 51 y/o male with PMHx of mod COPD, TRAVIS on BIPAP HS, DM 2, HTN, Dyslipidemia and other problems as outlined below who presents to the ED c/o worsening SOB for 2 days. Pt reports that 2 days he became more SOB. Sxs are assoc with subj fevers, wheezing and productive cough. Pt has been using his inhalers at home with minimal relief and he took one dose of Zpack rescue kit. He did not start steroids or use his nebulizer. Pt denies chest pain, palpitations, abd pain, N/V, bowel or bladder issues, LE edema, calf pain, lightheadedness/dizziness. In the ED, pt was hypoxic to 81% on room air when he arrived. Now saturating well on 3L O2. Pt is afebrile with no leukocytosis. K+ 3.4. Mag 1.7. CXR + opacities in L mid to lower lung. Pt is stable and will be admitted for further evaluation and treatment. Physical Exam (per Admitting): General Appearance: WD/WN, no apparent distress, + obese, + pertinent finding (Pt is sitting up in bed with at bedside) Head: normocephalic, atraumatic Eyes: normal inspection ENT: hearing grossly normal Neck: supple Respiratory/Chest: chest non-tender, no respiratory distress, + wheezing ( mild expiratory wheezes), + pertinent finding (decreased air movement ) Cardiovascular: regular rate, rhythm, no edema, no murmur Abdomen/GI: normal bowel sounds, non tender, soft Back: normal inspection Extremities/Musculoskelatal: normal inspection, no calf tenderness, no pedal edema Neurologic/Psych: alert, normal mood/affect, oriented x 3 Skin: normal color, warm/dry Hospital Course 51 year old male with history of COPD, Current Smoker, TRAVIS on Bipap at , CHF, DM, HTN presenting with fever and shortness of breath ACUTE HYPOXIC RESPIRATORY FAILURE SECONDARY TO COPD EXACERBATION, LEFT SIDED PNEUMONIA -On admission, 3 L - 88%; Uses BIPAP with 4 L overnight -- CXR: left lower lobe pneumonia -- placed on 2 liters by NC - received Levaquin 500mg, Prednisone 40mg daily, Nebs q6h x 3 days s/p 2 step exercise test: patient will need oxygen supplement by nasal cannula : 2 liters at rest, 3 liters when ambulating - improved overall - discharge plan: Levaquin 500mg po daily x 4 more days Prednisone taper Combivent q6h until seen by PCP continue Dulera, hold Spiriva while using Combivent oxygen supplementation - ff up with PCP in 1 week PNEUMONIA, CAP -CXR- Left mid-lower lung infiltrate -Levofloxacin 750 mg given x 3 days, continue for 4 more days 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 Mays: "the patient will need a repeat non-contrast CT of the chest and dynamic bronchoscopy for further evaluation as this CT angiogram from 01/09/2015 showed signs of tracheal-malacia. I suggest further work-up as an outpatient ." HYPOKALEMIA/HYPOMAGNESEMIA -- resolved SEVERE TRAVIS -BIPAP with 4 L q HS MORBID OBESITY DVT PROPHYLAXIS Lovenox DISPOSITION d.c home today ff up with PCP in 3-5 days Total time spent on discharge = 45 minutes This includes examination of the patient, discharge planning, medication reconciliation, and communication with other providers. Discharge Instructions Discharge Instructions Date of Service Aug 07, 2016. Admission Reason for Admission: Copd Exacerbation,Pneumonia Discharge Discharge Diagnosis / Problem: PNEUMONIA, COPD EXACERBATION Discharge Goals Goal(s): Diagnostic testing, Therapeutic intervention Activity Recommendations Activity Limitations: as noted below (NO HEAVY EXERTION UNTIL RE-EVALUATED BY PRIMARY CARE PHYSICIAN) . Instructions / Follow-Up Instructions / Follow-Up PLEASE REVIEW YOUR NEW MEDICATION LIST AND FOLLOW INSTRUCTIONS CAREFULLY. HOLD SPIRIVA WHILE TAKING COMBIVENT. CALL PRIMARY CARE PHYSICIAN OR RETURN TO ER IMMEDIATELY IF WITH RECURRENCE OF SYMPTOMS, INCREASING COUGH, SHORTNESS OF BREATH, FEVER/CHILLS. FOLLOW UP WITH DR. NG ON WEDNESDAY, AUGUST 10, 2016 AT 2:45 PM. FOLLOW UP WITH [facility] SCHEDULED. Current Hospital Diet Patient's current hospital diet: Low Sodium Diet (2gm Na), Diabetes Type 2 Diet Discharge Diet Recommended Diet: AHA Diet (Heart Healthy), Diabetes Type 2 Diet Pending Studies Studies pending at discharge: no Laboratory Results Hemoglobin A1c Test 08/07/16 07:35 Range/Units Estimated Average Glucose 163 mg/dl Hemoglobin A1c 7.3 H 4.5-5.6 % Medical Emergencies . Who to Call and When: Medical Emergencies: If at any time you feel your situation is an emergency, please call 911 immediately. . Non-Emergent Contact Non-Emergency issues call your: Primary Care Provider Call Non-Emergent contact if: you have a fever, you have any medication questions . Past History Medical & Surgical History: (1) COPD (chronic obstructive pulmonary disease) (2) Hypoxia (3) Pneumonia (4) COPD exacerbation (5) Hypertension (6) Obstructive sleep apnea (7) GERD (gastroesophageal reflux disease) (8) Hypothyroidism (9) DM type 2 (diabetes mellitus, type 2) (10) Morbid obesity (11) H/O cor pulmonale (12) NAFLD (nonalcoholic fatty liver disease) (13) Dyslipidemia (14) Severe obstructive sleep apnea (15) H/O pulmonary hypertension (16) CHF (congestive heart failure) (17) S/P appendectomy . "Provider Documentation" section prepared by Rosendo Fishman. . VTE Core Measure Inpt VTE Proph given/why not?: Enoxaparin (Lovenox)SQ
--- NOTE | 2016-08-07 16:08 | Pulmonology Progress Note ---
Pulmonary Progress Note Date of Service Aug 07, 2016. Attending Dr. Mays Subjective Patient notes he is close to his baseline respiratory status: Objective Patient on 3Lnc support able to complete full sentences and not using accessary muscles of respiration. VS: Stable on #lnc RESP: decreased bilateral with minimal expriatory wheezing CARD: S1 S2 RRR distant heart sounds unable to ascultate for M/R/G Workup WBC: 8K to15K AB.46/45/58/32 on 3 L nasal cannula Microbiology: Negative to date Chest x-ray: Mild cardiomegaly with hilar fullness parabronchial cuffing Radiology notes past she airspace disease in the left mid to lower lung [facility] CT angiogram 01/09/2015: No pulmonary embolism Diffuse groundglass opacities with mosaic attenuation Bilateral bronchiectatic changes/atelectasis left greater than right Lingular opacification/atelectasis Signs of tracheomalacia in the upper airway Assessment & Plan 51y/o male admitted with COPD exacerbation: 1) COPD: agree with Prednisone samir, Combivent, Levofloxacin DuoNeb and nicotine patch. At this time the patient notes he would like to d/c smoking and work toward placement on a lung transplant service. I have suggested he f/ u with his primary pulmonary team for this. They can contact a transplant service or send the patient to the [facility] pulmonary team for help with this process. 2) Tracheal Malacia: the patient will need a repeat non-contrast CT of the chest and dynamic bronchoscopy for further evaluation as this CT angiogram from 01/09/2015 showed signs of tracheal-malacia. I suggest further work-up as an outpatient . Data Medications: Current Inpatient Medications Medications (Trade) Dose Ordered Sig/Tram Route Start Time Stop Time Status Last Admin Dose Admin Enoxaparin Sodium (Lovenox Inj) 40 mg Q24H SC 08/05/16 21:00 09/04/16 20:59 08/06/16 20:59 40 MG Acetaminophen (Tylenol Tab) 650 mg Q4H PRN PO 08/05/16 10:45 09/04/16 10:44 Ondansetron HCl (Zofran Inj) 4 mg Q6H PRN IV 08/05/16 10:45 09/04/16 10:44 Nitroglycerin (Nitrostat Tab) 0.4 mg UD PRN SL 08/05/16 10:45 09/04/16 10:44 Nicotine (Nicoderm Cq 21MG Patch) 1 patch QAM TD 08/06/16 09:00 09/05/16 08:59 08/07/16 08:30 1 PATCH Miscellaneous 1 ea 1 ea HS N/A 08/05/16 21:00 09/04/16 20:59 08/06/16 21:02 1 EA Levofloxacin/Prmx (Levaquin / D5W/ Premixed D5W) 100 ml @ 100 mls/hr DAILY@0800 IV 08/06/16 08:00 08/12/16 07:59 08/07/16 08:26 100 MLS/HR Prednisone (PredniSONE TAB) 40 mg DAILY PO 08/06/16 09:00 09/05/16 08:59 08/07/16 08:29 40 MG Amlodipine Besylate (Norvasc Tab) 10 mg QAM PO 08/06/16 09:00 09/05/16 08:59 08/07/16 08:29 10 MG Aspirin (Ecotrin Tab) 325 mg QAM PO 08/06/16 09:00 09/05/16 08:59 08/07/16 08:29 325 MG Atorvastatin Calcium (Lipitor Tab) 40 mg QPM PO 08/05/16 21:00 09/04/16 20:59 08/06/16 20:59 40 MG Furosemide (Lasix Tab) 80 mg QAM PO 08/06/16 09:00 09/05/16 08:59 08/07/16 08:31 80 MG Levothyroxine Sodium (Synthroid Tab) 150 mcg DAILYBB PO 08/06/16 06:30 09/05/16 06:29 08/07/16 06:21 150 MCG Losartan Potassium (coZAAR TAB) 100 mg QAM PO 08/06/16 09:00 09/05/16 08:59 08/07/16 08:29 100 MG Metoprolol Succinate (Toprol Xl Tab) 25 mg QAM PO 08/06/16 09:00 09/05/16 08:59 08/07/16 08:28 25 MG Oxycodone/ Acetaminophen (Percocet 5-325mg Tab) 1 tab Q6H PRN PO 08/05/16 10:45 08/19/16 10:44 Pantoprazole Sodium (Protonix Tab) 40 mg QAM PO 08/06/16 09:00 09/05/16 08:59 08/07/16 08:30 40 MG Tizanidine HCl (Zanaflex Tab) 4 mg TID PRN PO 08/05/16 10:45 09/04/16 10:44 Spironolactone (Aldactone Tab) 50 mg QAM PO 08/06/16 09:00 09/05/16 08:59 08/07/16 08:30 50 MG Albuterol/ Ipratropium (Duoneb) 3 ml QIDR INH 08/05/16 12:00 09/04/16 11:59 08/05/16 19:50 3 ML Insulin Aspart (novoLOG ASPART) SLIDING SCALE If C... ACHS SC 08/05/16 16:30 09/04/16 16:29 08/07/16 12:58 9 UNITS Glucose (Glucose 40% Gel) 15-30 GRAMS 15 GRAMS... UD PRN PO 08/05/16 11:30 09/04/16 11:29 Glucose (Glucose Chew Tab) 4-8 Tablets 4 Tabl... UD PRN PO 08/05/16 11:30 09/04/16 11:29 Dextrose (Dextrose 50% 50ML Syringe) 25-50ML OF 50% DW IV FOR... UD PRN IV 08/05/16 11:30 09/04/16 11:29 Glucagon (Glucagon Inj) 1 mg UD PRN SQ 08/05/16 11:30 09/04/16 11:29 Furosemide (Lasix Tab) 40 mg HS PO 08/05/16 21:00 09/04/16 20:59 08/06/16 20:59 40 MG Miscellaneous (Iv Fluids Completed) 1 ea PRN PRN N/A 08/05/16 13:30 08/05/17 13:29 Albuterol/ Ipratropium (Combivent Respimat Inh) 1 puffs QID INH 08/06/16 13:00 09/05/16 12:59 08/07/16 08:28 1 PUFFS Miscellaneous Information (Consult Glycemic Management Pharmacy) 1 ea UD PRN N/A 08/06/16 08:56 09/05/16 08:55 Insulin Human NPH (novoLIN-N NPH) QAM SC 08/07/16 09:30 09/06/16 09:29 08/07/16 12:59 10 UNITS Tiotropium [place] (Spiriva Handihaler Inhaler) 1 puff QAM INH 08/08/16 09:00 09/07/16 08:59 Miscellaneous Information (Order Awaiting Action) 1 ea QS N/A 08/07/16 16:00 09/06/16 15:59 I & O: 24-Hour Column 08/07/16 07:59 Intake Total 1880 ml Balance 1880 ml Vital Signs: Date Time Temp Pulse Resp B/P Pulse Ox O2 Delivery O2 Flow Rate FiO2 08/07/16 15:14 37.2 67 20 129/77 91 Nasal Cannula 3.0 08/07/16 12:00 Nasal Cannula 3.0 08/07/16 11:39 37.0 54 18 126/77 93 Nasal Cannula 3.0 08/07/16 08:30 60 126/83 08/07/16 08:00 95 Nasal Cannula 3.0 08/07/16 07:32 36.6 54 20 126/75 95 Nasal Cannula 3.0 08/07/16 04:07 36.5 53 20 142/89 93 BiPAP 4.0 08/07/16 04:00 Nasal Cannula 4.0 BiPAP 08/07/16 00:00 Nasal Cannula 4.0 BiPAP 08/06/16 23:34 36.5 61 18 137/77 92 4.0 08/06/16 20:00 92 Nasal Cannula 4.0 08/06/16 19:54 36.7 59 18 176/77 92 Nasal Cannula 3.5 08/06/16 16:00 92 Nasal Cannula 4.0 Laboratory Results: Last 24 Hours Test 08/06/16 17:07 08/06/16 20:33 08/07/16 07:35 08/07/16 07:55 Bedside Glucose 175 mg/dl 238 mg/dl 169 mg/dl Estimated Average Glucose 163 mg/dl Hemoglobin A1c 7.3 %
--- NOTE | 2016-08-07 17:49 | Progress Note ---
Progress Note Date of Service Aug 07, 2016. Progress Note patient requires oxygen supplement per 2 step exercise test case preparer and liner arranged for oxygen to be delivered but patient expressed he cannot wait for this discussed need for oxygen extensively with patient including risks of not using it including worsening respiratory status, and patient and family said they have oxygen at home advised to put oxygen on prior to getting out of the car, return to the hospital immediately if he is short of breath patient will be escorted with oxygen to his car patient signed AMA form Rosendo Fishman MD
[2016-08-08] MEDS ORDERED: TIOTROPIUM BROMIDE 5 PUFF/90 MCG INH INH SCH (09:00)
== END 2016-08-07 17:50 | disposition left against medical advice (07) | DRG 189 ==
LOC: ENRESERVDT → ENRESERVTM → C.EDB 08:40 → C.MED 11:17 → EDBEDREQ 11:19
PROVIDERS: ADMIT Internal Medicine; ATTEND Internal Medicine
DX: J96.01 Acute respiratory failure with hypoxia (principal); J18.9 Pneumonia, unspecified organism; J44.0 Chronic obstructive pulmonary disease with (acute) lower respiratory infection; J44.1 Chronic obstructive pulmonary disease with (acute) exacerbation; I50.30 Unspecified diastolic (congestive) heart failure; Z68.42 Body mass index [BMI] 45.0-49.9, adult; G47.33 Obstructive sleep apnea (adult) (pediatric); I27.2 Other secondary pulmonary hypertension; I27.81 Cor pulmonale (chronic); J39.8 Other specified diseases of upper respiratory tract; Z99.81 Dependence on supplemental oxygen; I11.0 Hypertensive heart disease with heart failure; E87.6 Hypokalemia; E83.42 Hypomagnesemia; E11.9 Type 2 diabetes mellitus without complications; E03.9 Hypothyroidism, unspecified; E78.5 Hyperlipidemia, unspecified; E66.01 Morbid (severe) obesity due to excess calories; K21.9 Gastro-esophageal reflux disease without esophagitis; K76.0 Fatty (change of) liver, not elsewhere classified; F17.200 Nicotine dependence, unspecified, uncomplicated; Z79.82 Long term (current) use of aspirin; Z87.01 Personal history of pneumonia (recurrent); Z79.84 Long term (current) use of oral hypoglycemic drugs; Z79.899 Other long term (current) drug therapy; Z83.6 Family history of other diseases of the respiratory system; Z83.3 Family history of diabetes mellitus; Z82.49 Family history of ischemic heart disease and other diseases of the circulatory system; Z82.3 Family history of stroke